=== PATIENT | male | born 1970 | race Caucasian/White ===

== ENCOUNTER 2020-03-11 15:14 | Emergency (ER) | payer BC ==
--- NOTE | 2020-03-11 16:05 | ER Document Report ---
ED Medical Screen (RME) - General Chief Complaint: Abdominal Pain Stated Complaint: ABDOMINAL PAIN,CAN'T HOLD BOWELS Time Seen by Provider: 03/11/20 16:02 Mode of Arrival: Ambulatory Information source: Patient, Relative Notes: Patient presents complaining of generalized abdominal tenderness for the past week. Patient states that he has chronic diarrhea, but that he has been incontinent of stool for the past several days during the night. Patient denies any nausea vomiting or fever. Patient denies any urinary symptoms. hx: CVA, diabetes, seizures, IBS, diverticulosis I have greeted and performed a rapid initial assessment of this patient. A comprehensive ED assessment and evaluation of the patient, analysis of test results and completion of the medical decision making process will be conducted by additional ED providers. - Related Data Allergies/Adverse Reactions: metformin Allergy (Verified 03/11/20 15:57) topiramate [From Topamax] Allergy (Verified 03/11/20 15:57) Past Medical History - Social History Frequency of alcohol use: None Drug Abuse: None Physical Exam - Vital signs Vitals: Temp Pulse Resp BP Pulse Ox 99.1 F 88 18 140/96 H 96 03/11/20 15:29 03/11/20 15:29 03/11/20 15:29 03/11/20 15:29 03/11/20 15:29 - Abdominal Tenderness: Tender - Generalized abdominal tenderness Course - Vital Signs Vital signs: Temp Pulse Resp BP Pulse Ox 99.1 F 88 18 140/96 H 96 03/11/20 15:29 03/11/20 15:29 03/11/20 15:29 03/11/20 15:29 03/11/20 15:29
--- NOTE | 2020-03-11 16:42 | RADIOLOGY REPORT (SQ) ---
EXAM DESCRIPTION: ACUTE ABDOMEN SERIES IMAGES COMPLETED DATE/TIME: 03/11/2020 4:30 pm REASON FOR STUDY: generalized abd pain COMPARISON: None. NUMBER OF VIEWS: Three views. TECHNIQUE: Frontal chest, supine abdomen and upright/decubitus abdomen radiographic images acquired. LIMITATIONS: None. FINDINGS: CHEST: No focal airspace disease, pleural effusion or pneumothorax. Normal cardiomediasti nal silhouette. FREE AIR: None. No abnormal gas collections. BOWEL GAS PATTERN: No definite gas distended bowel loops. Scattered gas fluid levels which appear co lonic. CALCIFICATIONS: No suspicious calcifications. HARDWARE: None in the abdomen. SOFT TISSUES: No gross mass or suggestion of organomegaly. BONES: No acute fracture. No worrisome bone lesions. OTHER: No other significant finding. IMPRESSION: 1. No definitive pathologically dilated loops of bowel. Scattered gas fluid levels whi ch all appear colonic. Findings can be seen with diarrheal illness or cathartic use. 2. No evidence of acute intrathoracic process. TECHNICAL DOCUMENTATION: JOB ID: [id number] 2010 [employer]- All Rights Reserved Reading location - IP/workstation name: [email or web address]
[2020-03-11 17:19] LABS: ABSOLUTE EOSINOPHILS # (AUTO) 0.2 10^3/uL (0.0-0.6); ABSOLUTE LYMPHOCYTES (AUTO) 2.2 10^3/uL (0.5-4.7); ABSOLUTE MONOCYTES (AUTO) 0.5 10^3/uL (0.1-1.4); BASOPHILS % (AUTO) 0.4 % (0-2); EOSINOPHILS % (AUTO) 2.1 % (0-6); HEMATOCRIT 43.9 % (37.9-51.0); HEMOGLOBIN 15.4 g/dL (13.5-17.0); LYMPHOCYTES % (AUTO) 27.5 % (13-45); MEAN CORPUSCULAR HEMOGLOBIN 30.3 pg (27.0-33.4); MEAN CORPUSCULAR VOLUME 87 fl (80-97); MONOCYTES % (AUTO) 6.9 % (3-13); PLATELET COUNT 248 10^3/uL (150-450); RED BLOOD COUNT 5.06 10^6/uL (4.35-5.55); RED CELL DISTRIBUTION WIDTH 13.5 % (11.5-14.0); SEGMENTED NEUTROPHILS % (AUTO) 63.1 % (42-78); TOTAL CELLS COUNTED % (AUTO) 100 %; WHITE BLOOD COUNT 7.9 10^3/uL (4.0-10.5)
[2020-03-11 17:49] LABS: ALBUMIN 4.4 g/dL (3.5-5.0); ALKALINE PHOSPHATASE 98 U/L (38-126); ANION GAP 8 (5-19); ASPARTATE AMINO TRANSFERASE 23 U/L (17-59); BILIRUBIN,DIRECT 0.3 mg/dL (0.0-0.4); BILIRUBIN,TOTAL 0.7 mg/dL (0.2-1.3); BLOOD UREA NITROGEN 10 mg/dL (7-20); CALCIUM 8.7 mg/dL (8.4-10.2); CARBON DIOXIDE 27 mmol/L (22-30); CHLORIDE 105 mmol/L (98-107); GLUCOSE 235 mg/dL (75-110); POTASSIUM 3.8 mmol/L (3.6-5.0); TOTAL PROTEIN 7.6 g/dL (6.3-8.2)
[2020-03-11 20:28] LABS: APPEARANCE,URINE CLEAR; BILIRUBIN,URINE NEGATIVE (NEGATIVE); COLOR,URINE YELLOW; GLUCOSE, URINE >=500 mg/dL (NEGATIVE); KETONES,URINE NEGATIVE (NEGATIVE); LEUKOCYTE ESTERASE,URINE NEGATIVE (NEGATIVE); NITRITE,URINE NEGATIVE (NEGATIVE); PROTEIN,URINE NEGATIVE (NEGATIVE); URINE SPECIFIC GRAVITY 1.013; UROBILINOGEN,URINE NEGATIVE mg/dL (<2.0)
[2020-03-11] MEDS ORDERED: ONDANSETRON ODT 4 MG TAB (6 TAB/ER DISP) PO PRN (22:07)
--- NOTE | 2020-03-11 22:16 | ER Document Report ---
ED General - General Chief Complaint: Abdominal Pain Stated Complaint: ABDOMINAL PAIN,CAN'T HOLD BOWELS Time Seen by Provider: 03/11/20 16:02 Mode of Arrival: Ambulatory - HPI Notes: Patient is a 49-year-old male who presents to the ER for further evaluation. He is a difficult historian. He has chronic diarrhea. He states he was incontinent of stool in the middle of the night. He states to me, however, he has been nauseated for the last week. He states that everything he eats seems to make him nauseous, so he just is not eating. He thought maybe it could be 1 of his medications. He has not been on any new medications since December. He admits he did not take his diabetes medications today because he thought they might be the culprits and making him ill. No fevers or chills. He has had [place] but no emesis. He has chronic diarrhea. He states he has no abdominal pain, but he states it is tender when someone pushes on his abdomen. - Related Data Allergies/Adverse Reactions: metformin Allergy (Verified 03/11/20 15:57) topiramate [From Topamax] Allergy (Verified 03/11/20 15:57) Past Medical History - General Information source: Patient, Relative - Social History Smoking Status: Never Smoker Frequency of alcohol use: None Drug Abuse: None Family History: Reviewed & Not Pertinent Neurological Medical History: Reports: Hx Cerebrovascular Accident, Hx Seizures Endocrine Medical History: Reports: Hx Diabetes Mellitus Type 2 GI Medical History: Reports: Hx Irritable Bowel, Hx Colonoscopy, Other - Diverticulosis Review of Systems - Review of Systems Constitutional: No symptoms reported EENT: No symptoms reported Cardiovascular: No symptoms reported Respiratory: No symptoms reported Gastrointestinal: See HPI Genitourinary: No symptoms reported Musculoskeletal: No symptoms reported Skin: No symptoms reported Neurological/Psychological: No symptoms reported Physical Exam - Vital signs Vitals: Temp Pulse Resp BP Pulse Ox 99.1 F 88 18 140/96 H 96 03/11/20 15:29 03/11/20 15:29 03/11/20 15:29 03/11/20 15:29 03/11/20 15:29 - Notes Notes: Vital signs reviewed, please refer to chart. Head is normocephalic, atraumatic. Pupils equal round, reactive to light. Neck is supple without meningismus. Heart is regular rate and rhythm. Lungs are clear to auscultation bilaterally. Abdomen is soft, nontender, normoactive bowel sounds throughout. Extremities without cyanosis, clubbing. Posterior calves are nontender. Peripheral pulses are equal. Skin is warm and dry. Patient is awake, alert, neurological exam is nonfocal. Course - Re-evaluation Re-evalutation: 03/11/20 22:13 Patient presents to the emergency department for evaluation. Laboratory investigations and imaging were ordered. The patient's concern was that it was 1 of his medications causing this issue. He has not had any medication changes in the last few months. I told him that this was highly unlikely. I encouraged him to take his medications as prescribed. I also encouraged him to stay hydrated. His blood glucose is elevated, likely because he did not take his diabetic medications today. I encouraged him to have a discussion with his primary care doctor. He seems very unsure about all of his medications, having to take as many as he is. He is encouraged to review this list with his primary care provider and see the reasons he is taking them, see if any changes need to be made. He voiced understanding. Otherwise his vitals are stable. He has diarrhea but this is in fact chronic. He has already had a colonoscopy. He is awaiting another visit with GI. He is not dehydrated. Patient was given Zofran to go here, and is to follow-up with his primary care provider. He is to return to the ED with worsening or new concerning symptoms of any sort. - Vital Signs Vital signs: Temp Pulse Resp BP Pulse Ox 99.1 F 64 18 119/94 H 99 03/11/20 15:29 03/11/20 22:25 03/11/20 22:25 03/11/20 22:25 03/11/20 22:25 - Laboratory Result Diagrams: 03/11/20 16:39 03/11/20 16:39 Laboratory results interpreted by me: 03/11/20 03/11/20 16:39 19:52 Glucose 235 H Urine Glucose (UA) >=500 H - Diagnostic Test Radiology reviewed: Reports reviewed Radiology results interpreted by me: 03/11/20 22:15 Acute Abdomen Series 03/11/20 16:05 IMPRESSION: 1. No definitive pathologically dilated loops of bowel. Scattered gas fluid levels which all appear colonic. Findings can be seen with diarrheal illness or cathartic use. 2. No evidence of acute intrathoracic process. Discharge - Discharge Clinical Impression: Nausea Condition: Stable Disposition: HOME, SELF-CARE Instructions: Diarrhea, Nonspecific ([facility]), Nausea or Vomiting, Nonspecific ([facility]) Additional Instructions: Please take your medications as prescribed. Zofran as needed for nausea. Follow-up with your primary care provider this week, discuss your medications. If you develop worsening or new concerning symptoms of any sort, please return immediately to the emergency department for reevaluation.
[2020-03-11 22:32] VITALS: BP 119/94
== END 2020-03-11 22:32 | disposition home or self-care (01) ==
LOC: ER 15:14
DX: K52.9 Noninfective gastroenteritis and colitis, unspecified (principal); E11.65 Type 2 diabetes mellitus with hyperglycemia; T50.906A Underdosing of unspecified drugs, medicaments and biological substances, initial encounter; Z91.128 Patient's intentional underdosing of medication regimen for other reason; Z91.14 Patient's other noncompliance with medication regimen; R11.0 Nausea; R15.9 Full incontinence of feces; Z79.899 Other long term (current) drug therapy; Z88.8 Allergy status to other drugs, medicaments and biological substances; Z88.6 Allergy status to analgesic agent
CPT/HCPCS: 36415; 74022; 80053; 81001; 83690; 85025; 99284